=== PATIENT | female | born 1990 | race Caucasian/White ===

== ENCOUNTER 2020-05-04 15:02 | Emergency (ER) | payer OTHER ==
[~2020-05-04] VITALS: Ht 256.5 cm; Wt 61.2 kg
[~2020-05-04 15:02] MED LIST: AUGMENTIN 875875 MG PO; BENTYL 20 MG TA20 M1 PO; IBUPROFEN 800800 M1 PO; LABETALOL 100100 MG PO; NORCO 5-325 TA1 EACH PO; PREDNISONE 20 M20 M1 PO; PROZAC 20 MG20 MG PO; ZOFRAN ODT4 MG PO; ZPAK PO
[2020-05-04] MEDS ORDERED: EPCLUSA 400 MG1 EACH PO (15:37)
[2020-05-04] MEDS ORDERED: NEXIUM20 MG PO (15:37)
[2020-05-04 15:58] LABS: URINE BILIRUBIN NEGATIVE (Negative); URINE BLOOD NEGATIVE (Negative); URINE CLARITY CLEAR; URINE COLOR YELLOW; URINE GLUCOSE-RANDOM* NEGATIVE (Negative); URINE KETONES NEGATIVE (Negative); URINE LEUKOCYTES-REFLEX NEGATIVE (Negative); URINE NITRITE-REFLEX NEGATIVE (Negative); URINE PROTEIN (DIPSTICK) NEGATIVE (Negative); URINE SPECIFIC GRAVITY 1.025 (1.005-1.035); URINE UROBILINOGEN 0.2 E.U./dl (0.2-1.0)
--- NOTE | 2020-05-04 16:08 | EKG ---
[facility] [place] [address] ELECTROCARDIOGRAM REPORT Name: MACARIO KENNEDY Room #: PRE M.R.#: [id number] Admission: Attend Phys: Discharge: Date of : 89 Report #: [id number] THIS REPORT FOR: cc: BRYAN - Leanne family physician/PCP Bertrand Shields MD ~ THIS REPORT FOR: //name// [facility] ED Test Date: 2020-05-04 Test Time: 15:59:14 Pat Name: MACARIO KENNEDY Department: Room: Gender: F Portable [employer] Operator: donna : 1990 Requested By: Dayan Romero Order Number: [id number] MD: Bertrand Shields Measurements Intervals Superior Rate: 68 P: 74 UT: 136 QRS: 90 QRSD: 78 T: 50 QT: 391 QTc: 416 Interpretive Statements Sinus rhythm Consider right ventricular hypertrophy No previous ECG available for comparison Electronically Signed On 05-04-2020 16:08:41 CDT by Bertrand Shields [email or web address] <ELECTRONICALLY SIGNED> By: Bertrand Shields MD 05/04/20 1608 1559 1559 MD KUSH Sandoval
[2020-05-04 16:15] LABS: ABSOLUTE NEUTROPHILS 7.9 thou/uL (1.4-8.2); BASOPHILS 0.5 % (0.0-2.0); EOSINOPHILS 0.7 % (0.0-3.0); HEMATOCRIT 33.3 % (37.0-47.0); HEMOGLOBIN 11.4 gm/dL (12.0-15.0); LYMPHOCYTES 17.4 % (24.0-44.0); MCH 29.3 pg (26.0-34.0); MCHC 34.3 g/dL (28.0-37.0); MCV 85.3 fL (80.0-100.0); MONOCYTES 4.9 % (1.0-8.0); PLATELET COUNT 288 thou/uL (150-400); POLYS 76.5 % (36.0-66.0); RDW 13.7 % (10.5-14.5); WBC 10.3 thou/uL (4.0-11.0)
[2020-05-04 16:25] LABS: CALCIUM 8.8 mg/dL (8.5-10.1); CREATININE 0.9 mg/dL (0.6-1.0); POTASSIUM 3.9 mmol/L (3.5-5.1)
[2020-05-04 16:31] LABS: ALBUMIN 3.5 g/dL (3.4-5.0); TOTAL BILIRUBIN 0.6 mg/dL (0.2-1.0); TOTAL PROTEIN 7.4 g/dL (6.4-8.2)
[2020-05-04] MEDS ORDERED: CARAFATE 1 GM TA1 G1 PO (17:26)
[2020-05-04 17:48] VITALS: BP 108/69
== END 2020-05-04 17:48 | disposition home or self-care (01) ==
LOC: ER 15:02
PROVIDERS: Physician Assistant
DX: K80.80 Other cholelithiasis without obstruction (principal); K29.70 Gastritis, unspecified, without bleeding; K21.9 Gastro-esophageal reflux disease without esophagitis; Z90.49 Acquired absence of other specified parts of digestive tract; Z88.0 Allergy status to penicillin; Z79.899 Other long term (current) drug therapy